=== PATIENT | female | born 1990 | race Hispanic/Latino ===

== ENCOUNTER → 2019-10-06 | Outpatient (CLI) | payer MEDICAID ==
[~2019-10-06] MED LIST: APIX5TAB PO; ASCO500T20 PO; CYAN-52 PO; DOCU-275 PO; FOLI1 PO; GABA-531 PO
== END | disposition home or self-care (01) ==
LOC: RAH 08:10
PROVIDERS: ATTEND Family Medicine
DX: K76.0 Fatty (change of) liver, not elsewhere classified (principal)
CPT/HCPCS: 76700

== ENCOUNTER → 2019-11-02 | Outpatient (CLI) | payer MEDICAID | END | disposition home or self-care (01) | LOC: RAH 13:53 | PROVIDERS: ATTEND Internal Medicine Critical Care Medicine | DX: J86.9 Pyothorax without fistula (principal); J98.11 Atelectasis | CPT/HCPCS: 71250 ==

== ENCOUNTER → 2019-12-30 | Outpatient (CLI) | payer MEDICAID | END | disposition home or self-care (01) | LOC: RAH 09:36 | PROVIDERS: ATTEND Family Medicine | DX: I83.91 Asymptomatic varicose veins of right lower extremity (principal); I82.401 Acute embolism and thrombosis of unspecified deep veins of right lower extremity; Z86.718 Personal history of other venous thrombosis and embolism | CPT/HCPCS: 93971 ==

== ENCOUNTER → 2020-05-15 | Outpatient (CLI) | payer MEDICAID | END | disposition home or self-care (01) | LOC: RAH 13:22 | PROVIDERS: ATTEND Internal Medicine Critical Care Medicine | DX: I26.99 Other pulmonary embolism without acute cor pulmonale (principal) | CPT/HCPCS: 93970 ==

== ENCOUNTER 2020-11-27 14:30 | Emergency (ER) | payer MEDICAID ==
[~2020-11-27] VITALS: Ht 172.7 cm; Wt 140.2 kg
[2020-11-27 14:32] VITALS: BP 130/79
[2020-11-27 15:25] LABS: BASOPHILS % (AUTO) 0.3 % (0.0-5.0); EOSINOPHILS % (AUTO) 1.9 % (0.0-8.0); HEMATOCRIT 40.3 % (36-48); LYMPHOCYTES % (AUTO) 16.2 % (21.0-51.0); MEAN CORPUSCULAR VOLUME 84.3 fL (79-99); MONOCYTES % (AUTO) 6.1 % (3.0-13.0); NEUTROPHILS % (AUTO) 75.4 % (40.0-77.0); PLATELET COUNT (AUTO) 223 K/uL (130-400); RED BLOOD CELL COUNT(AUTO) 4.78 MIL/uL (4.00-5.50); RED CELL DISTRIBUTION WIDTH 14.6 % (11.0-15.5); WHITE BLOOD COUNT (AUTO) 6.9 K/uL (4.8-10.8)
[2020-11-27 15:36] LABS: CREATININE 0.7 mg/dL (0.5-1.5); POTASSIUM 3.9 mmol/L (3.5-5.1)
[2020-11-27 15:41] LABS: ALBUMIN 3.8 g/dL (3.5-5.0); BILIRUBIN,TOTAL 0.6 mg/dL (0.2-1.0); TOTAL PROTEIN, SERUM 7.5 g/dL (6.0-8.3)
[2020-11-27] MEDS ORDERED: ONDANSETRON 4MG INJ IVP ONE (15:45)
[2020-11-27] MEDS ORDERED: MORPHINE 4 MG SYG IVP ONE (15:45)
[2020-11-27] MEDS ORDERED: NACL 0.9% 1000ML 1,000 ML IV ONE (15:45)
[2020-11-27 16:00] VITALS: BP 132/77
[2020-11-27 16:24] LABS: AMPHET/METH SCREEN,URINE NEGATIVE (NEGATIVE); BARBITURATE SCREEN, URINE NEGATIVE (NEGATIVE); BENZODIAZEPINES SCREEN,URINE NEGATIVE (NEGATIVE); CANNABINOID SCREEN,URINE NEGATIVE (NEGATIVE); COCAINE SCREEN,URINE NEGATIVE (NEGATIVE); OPIATE SCREEN,URINE NEGATIVE (NEGATIVE); PHENCYCLIDINE SCREEN,URINE NEGATIVE (NEGATIVE)
[2020-11-27 16:24] LABS: PROTHROMBIN TIME 10.9 SEC (9.6-11.6)
[2020-11-27 17:24] LABS: CREATINE KINASE, TOTAL 79 U/L (21-232); MYOGLOBIN 38 ng/mL (10-92); TROPONIN I < 0.04 ng/mL (0.00-0.06)
[2020-11-27] MEDS ORDERED: KETOROLAC 30MG VIAL (30MG/ML) IV ONE (17:30)
[2020-11-27] MEDS ORDERED: DICYCLOMINE 20MG (10MG/ML) AMP IM ONE (17:30)
[2020-11-27 18:51] VITALS: BP 104/62
[2020-11-27 19:30] LABS: APPEARANCE,URINE Clear (CLEAR); BILIRUBIN,URINE Negative (NEGATIVE); COLOR,URINE Dark Yellow (YELLOW); GLUCOSE, URINE (UA) Negative (NEGATIVE); KETONES,URINE Trace mg/dL (NEGATIVE); LEUKOCYTE ESTERASE ,URINE Negative (NEGATIVE); NITRATE,URINE Negative (NEGATIVE); OCCULT BLOOD,URINE Negative (NEGATIVE); PROTEIN,URINE Trace mg/dL (NEGATIVE)
[2020-11-27 19:46] LABS: BACTERIA,URINE Few /HPF (None Seen); RBC,URINE 0-1 /HPF (0-1); WBC,URINE 0-1 /HPF (0-1)
[2020-11-27] MEDS ORDERED: PANT40TA54 PO (19:46)
[2020-11-27] MEDS ORDERED: DICY20TA2 PO (19:46)
[2020-11-27] MEDS ORDERED: ONDA4TAB10 PO (19:46)
[2020-11-27] MEDS ORDERED: TRAM50TA4 PO (19:46)
[2020-11-27 19:47] LABS: MUCUS,URINE Few LPF (None Seen); SQUAMOUS EPITHELIAL CELL,UR Few /HPF (0-2); YEAST,URINE BUDDING Rare /HPF (None Seen)
[2020-11-27 20:25] VITALS: BP 114/67
== END 2020-11-27 20:43 | disposition home or self-care (01) ==
LOC: EDH 14:30
DX: R10.11 Right upper quadrant pain (principal); R06.02 Shortness of breath; Z88.8 Allergy status to other drugs, medicaments and biological substances; Z79.899 Other long term (current) drug therapy
CPT/HCPCS: 36415; 71045; 76705; 80053; 80305; 81001; 81025; 82150; 82550; 83690; 83735; 83874; 83880; 84484 ×2; 85025; 85378; 85610; 93005; 96372; 96374; 96375; 99285; J0500; J1885; J2270; J2405; J7030

== ENCOUNTER → 2020-12-01 | Outpatient (CLI) | payer MEDICAID ==
[~2020-12-01] MED LIST changes: +DICY20TA2 PO; +ONDA4TAB10 PO; +PANT40TA54 PO; +TRAM50TA4 PO
== END | disposition home or self-care (01) ==
LOC: RAH 10:40
PROVIDERS: ATTEND Family Medicine
DX: R07.89 Other chest pain (principal)
CPT/HCPCS: 71046

== ENCOUNTER 2021-01-10 13:04 | Emergency (ER) | payer MEDICAID ==
[~2021-01-10] VITALS: Ht 172.7 cm; Wt 127.0 kg
[2021-01-10 13:10] VITALS: BP 123/77
[2021-01-10 15:32] LABS: BASOPHILS % (AUTO) 0.5 % (0.0-5.0); EOSINOPHILS % (AUTO) 2.3 % (0.0-8.0); HEMATOCRIT 37.8 % (36-48); LYMPHOCYTES % (AUTO) 23.6 % (21.0-51.0); MEAN CORPUSCULAR HEMOGLOBIN 27.3 pg (27.0-33.0); MEAN CORPUSCULAR HGB CONC 32.8 g/dL (32.0-36.0); MEAN CORPUSCULAR VOLUME 83.3 fL (79-99); MONOCYTES % (AUTO) 6.2 % (3.0-13.0); PLATELET COUNT (AUTO) 202 K/uL (130-400); RED BLOOD CELL COUNT(AUTO) 4.54 MIL/uL (4.00-5.50); RED CELL DISTRIBUTION WIDTH 15.1 % (11.0-15.5); WHITE BLOOD COUNT (AUTO) 5.6 K/uL (4.8-10.8)
[2021-01-10 15:51] LABS: CREATININE 0.8 mg/dL (0.5-1.5); POTASSIUM 3.6 mmol/L (3.5-5.1)
[2021-01-10 15:53] LABS: INR 0.98 (0.85-1.15); PROTHROMBIN TIME 10.7 SEC (9.6-11.6)
[2021-01-10 15:54] LABS: PARTIAL THROMBOPLASTIN TIME 25.9 SEC (26.3-35.5)
[2021-01-10 15:56] LABS: BILIRUBIN,TOTAL 0.6 mg/dL (0.2-1.0); TOTAL PROTEIN, SERUM 7.3 g/dL (6.0-8.3)
[2021-01-10] MEDS ORDERED: MORPHINE 4 MG SYG IVP ONE (16:00)
[2021-01-10] MEDS ORDERED: ONDANSETRON 4MG INJ IVP ONE ×2 (16:00→18:00)
[2021-01-10] MEDS ORDERED: 0.9%NACL 1000ML 1,000 ML IV ONE ×2 (16:00→17:56)
[2021-01-10 16:06] LABS: CREATINE KINASE, TOTAL 121 U/L (21-232); MYOGLOBIN 40 ng/mL (10-92); TROPONIN I < 0.04 ng/mL (0.00-0.06)
[2021-01-10] MEDS ORDERED: IOHEXOL-350 75 ML VIAL IV ONE (16:12)
[2021-01-10 17:33] VITALS: BP 132/74
[2021-01-10] MEDS ORDERED: ONDANSETRON 4MG INJ ONE (17:54)
[2021-01-10] MEDS ORDERED: MORPHINE 4 MG SYG ONE (17:54)
[2021-01-10] MEDS ORDERED: MORPHINE 4 MG SYG IV ONE (18:00)
[2021-01-10 18:19] LABS: APPEARANCE,URINE CLOUDY (CLEAR); BILIRUBIN,URINE NEGATIVE (NEGATIVE); COLOR,URINE ORANGE (YELLOW); GLUCOSE, URINE (UA) NEGATIVE (NEGATIVE); KETONES,URINE 5 mg/dL (NEGATIVE); LEUKOCYTE ESTERASE ,URINE TRACE (NEGATIVE); NITRATE,URINE POSITIVE (NEGATIVE); OCCULT BLOOD,URINE LARGE (NEGATIVE); PH,URINE 5.5 (5.0-8.0); PROTEIN,URINE 100 mg/dL (NEGATIVE)
[2021-01-10 18:31] LABS: HCG,QUAL RESULT NEGATIVE (NEGATIVE)
[2021-01-10 18:41] LABS: BACTERIA,URINE Rare /HPF (None Seen); RBC,URINE TNTC /HPF (0-1)
[2021-01-10 18:42] LABS: SQUAMOUS EPITHELIAL CELL,UR Rare /HPF (0-2)
[2021-01-10] MEDS ORDERED: KETOROLAC 30MG VIAL (30MG/ML) IV ONE (19:00)
[2021-01-10] MEDS ORDERED: TRAM50TA4 PO (19:04)
[2021-01-10] MEDS ORDERED: IBUP-2070 PO (19:04)
[2021-01-10] MEDS ORDERED: CYCL5TAB PO (19:04)
[2021-01-10] MEDS ORDERED: CEPH500C2 PO (19:19)
[2021-01-10] MEDS ORDERED: MORPHINE 2 MG SYG ONE (20:19)
[2021-01-10] MEDS ORDERED: MORPHINE 2 MG SYG IVP ONE (20:30)
[2021-01-10 20:32] VITALS: BP 126/72
== END 2021-01-10 20:33 | disposition home or self-care (01) ==
LOC: EDH 13:04
DX: N39.0 Urinary tract infection, site not specified (principal); R07.89 Other chest pain; M79.604 Pain in right leg; R22.41 Localized swelling, mass and lump, right lower limb; Z79.01 Long term (current) use of anticoagulants; Z79.1 Long term (current) use of non-steroidal anti-inflammatories (NSAID); Z79.899 Other long term (current) drug therapy; Z86.711 Personal history of pulmonary embolism; Z86.718 Personal history of other venous thrombosis and embolism
CPT/HCPCS: 36415; 71275; 80053; 81001; 81025; 82550; 83690; 83874; 84484; 85025; 85610; 85730; 87088; 93005; 93971; 96361; 96374; 96375; 99285; J1885; J2270; J2405; J3490; J7030; Q9967

== ENCOUNTER 2023-03-25 14:54 | Emergency (ER) | payer MEDICAID ==
[~2023-03-25] VITALS: Ht 172.7 cm; Wt 132.0 kg
[~2023-03-25 14:54] MED LIST changes: +CEPH500C2 PO; +CYCL5TAB PO; +DOCU-270 PO; -DOCU-275 PO; +IBUP-2070 PO
[2023-03-25 16:22] LABS: BASOPHILS # (AUTO) 0.03 K/uL (0.00-0.20); BASOPHILS % (AUTO) 0.4 % (0.0-5.0); EOSINOPHILS # (AUTO) 0.16 K/uL (0.00-0.70); EOSINOPHILS % (AUTO) 2.1 % (0.0-8.0); HEMATOCRIT 38.3 % (36-48); IMMATURE GRANULOCYTE ABSOLUTE 0.02 K/uL (0-1); LYMPHOCYTES # (AUTO) 1.6 K/uL (1.0-4.8); LYMPHOCYTES % (AUTO) 21.4 % (21.0-51.0); MEAN CORPUSCULAR HEMOGLOBIN 28.2 pg (27.0-33.0); MEAN CORPUSCULAR HGB CONC 32.9 g/dL (32.0-36.0); MEAN CORPUSCULAR VOLUME 85.7 fL (79-99); MONOCYTES # (AUTO) 0.3 K/uL (0.1-1.0); MONOCYTES % (AUTO) 4.1 % (3.0-13.0); NEUTROPHILS # (AUTO) 5.4 K/uL (1.8-7.7); NEUTROPHILS % (AUTO) 71.7 % (40.0-77.0); PLATELET COUNT (AUTO) 236 K/uL (130-400); RED BLOOD CELL COUNT(AUTO) 4.47 MIL/uL (4.00-5.50); RED CELL DISTRIBUTION WIDTH 14.7 % (11.0-15.5); WHITE BLOOD COUNT (AUTO) 7.5 K/uL (4.8-10.8)
[2023-03-25 16:30] LABS: ALBUMIN 3.7 g/dL (3.5-5.0); BILIRUBIN,TOTAL 0.4 mg/dL (0.2-1.0); CREATININE 0.9 mg/dL (0.5-1.5); POTASSIUM 3.5 mmol/L (3.5-5.1); TOTAL PROTEIN, SERUM 7.5 g/dL (6.0-8.3)
[2023-03-25] MEDS ORDERED: MORPHINE 4 MG SYG IVP ONE (16:30)
[2023-03-25] MEDS ORDERED: ONDANSETRON 4MG INJ IVP ONE (16:30)
[2023-03-25] MEDS ORDERED: 0.9%NACL 1000ML 1,000 ML IV ONE (16:30)
[2023-03-25 16:35] LABS: APPEARANCE,URINE CLEAR (CLEAR); BILIRUBIN,URINE NEGATIVE (NEGATIVE); COLOR,URINE YELLOW (YELLOW); GLUCOSE, URINE (UA) NEGATIVE (NEGATIVE); KETONES,URINE NEGATIVE (NEGATIVE); LEUKOCYTE ESTERASE ,URINE NEGATIVE Leu/uL (NEGATIVE); NITRATE,URINE NEGATIVE (NEGATIVE); OCCULT BLOOD,URINE NEGATIVE (NEGATIVE); PROTEIN,URINE 10 mg/dL (NEGATIVE); UROBILINOGEN,URINE 3 mg/dL (0.2-1.0)
[2023-03-25 16:36] LABS: ADD UA MICROSCOPIC YES
[2023-03-25 16:37] LABS: BACTERIA,URINE RARE /HPF (None Seen); MUCUS,URINE FEW LPF (None Seen); RBC,URINE 0-1 /HPF (0-1); SQUAMOUS EPITHELIAL CELL,UR RARE /HPF (0-2); WBC,URINE 0-1 /HPF (0-1)
[2023-03-25 16:40] LABS: HCG,QUALITATIVE URINE NEGATIVE (NEGATIVE)
[2023-03-25] MEDS ORDERED: KETOROLAC 30MG VIAL (30MG/ML) IVP ONE ×2 (17:30)
[2023-03-25] MEDS ORDERED: DICYCLOMINE HCL 10 MG/5 ML ML PO ONE (18:00)
[2023-03-25] MEDS ORDERED: MAG/ALUM/SIMETH 30 ML UDCUP PO ONE (18:00)
[2023-03-25] MEDS ORDERED: FAMOTIDINE 20MG VIAL IV ONE (18:00)
[2023-03-25] MEDS ORDERED: LIDOCAINE HCL 2% VISCOUS 15 ML UDCUP PO ONE (18:00)
[2023-03-25 18:17] VITALS: BP 117/78; PULSE 78; RESP 18; O2SAT 100
[2023-03-25] MEDS ORDERED: METH-811 PO (18:34)
[2023-03-25] MEDS ORDERED: FAMO20TA8 PO (18:34)
[2023-03-25] MEDS ORDERED: IBUP-2070 PO (18:34)
[2023-03-25] MEDS ORDERED: TIZANIDINE HCL 2 MG TABLET PO SCH (19:00)
== END 2023-03-25 18:59 | disposition home or self-care (01) ==
LOC: EDH 14:54
DX: K29.70 Gastritis, unspecified, without bleeding (principal); S39.012A Strain of muscle, fascia and tendon of lower back, initial encounter; Z79.01 Long term (current) use of anticoagulants; X58.XXXA Exposure to other specified factors, initial encounter; Y93.89 Activity, other specified; Y92.89 Other specified places as the place of occurrence of the external cause; Y99.8 Other external cause status
CPT/HCPCS: 99285; 96374; 96375; 76705; 96361; 80053; 83690; 85025; 81001; 81025; 36415; J7030; J2405; J2270; S0028; J3490